=== PATIENT | male | born 1985 | race Caucasian/White ===

== ENCOUNTER 2017-04-26 13:41 | Emergency (ER) | payer BC ==
[2017-04-26 14:55] VITALS: BP 142/63
--- NOTE | 2017-04-26 15:13 | ED ---
Neck Pain - HPI Summary HPI Summary: 31 yr old male with the complaint of right sided neck pain. Onset of pain was a week ago, and located right side of posterior neck, radiates into right trapezius. Worse with turning the head to the right. Pain is 6/10. No numbness, weakness in hands or legs. no bowel or bladder incontinence. No other complaints. - History of Current Complaint Chief Complaint: UCBackPain Stated Complaint: BACK PAIN Time Seen by Provider: 04/26/17 14:56 - Allergies/Home Medications Allergies/Adverse Reactions: Allergies Allergy/AdvReac Type Severity Reaction Status Date / Time Amoxicillin Allergy Rash Verified 04/26/17 14:49 Home Medications: Home Medications Acetaminophen [Acetaminophen Extra Stren] 1,000 mg PO ONCE PRN 04/26/17 [ History Confirmed 04/26/17] Eluxadoline (NF) [Viberzi] 75 mg PO 04/26/17 [History] Modafinil TAB* [Provigil TAB*] 200 mg PO DAILY 04/26/17 [History Confirmed 04/26] Tolterodine (NF) [Detrol (NF)] 1 mg PO 04/26/17 [History] PMH/Surg Hx/FS Hx/Imm Hx Previously Healthy: Yes - Surgical History Surgery Procedure, Year, and Place: nasal Infectious Disease History: No Infectious Disease History: Denies: Traveled Outside the [place] in Last 30 Days - Family History Known Family History: Positive: None - Social History Occupation: Employed Full-time Lives: With Family Alcohol Use: None Substance Use Type: Reports: None Smoking Status (MU): Never Smoked Tobacco Review of Systems Constitutional: Negative Positive: Other - neck pain Negative: Weakness, Paresthesia, Numbness All Other Systems Reviewed And Are Negative: Yes Physical Exam Triage Information Reviewed: Yes Vital Signs On Initial Exam: Initial Vitals Temp Pulse Resp BP 98.2 F 83 18 142/63 04/26/17 14:51 04/26/17 14:51 04/26/17 14:51 04/26/17 14:51 Vital Signs Reviewed: Yes Appearance: Positive: Well-Appearing, No Pain Distress Skin: Positive: Warm Head/Face: Positive: Normal Head/Face Inspection Eyes: Positive: EOMI ENT: Positive: Normal ENT inspection, Pharynx normal, TMs normal Neck: Positive: Nontender Respiratory/Lung Sounds: Positive: Clear to Auscultation, Breath Sounds Present Cardiovascular: Positive: RRR. Negative: Murmur Abdomen Description: Positive: Nontender Musculoskeletal: Positive: Strength/ROM Intact, Other - he has increased muscle turgor right side of posterior neck and also in the right trapezius. With increased tenderness in these muscles. Limited ROM of neck looking to the right. No midline neck tenderness. Neurological: Positive: Sensory/Motor Intact, Alert, Oriented to Person Place, Time, CN Intact II-III Psychiatric: Positive: Normal - [place] Coma Scale Best Eye Response: 4 - Spontaneous Best Motor Response: 6 - Obeys Commands Best Verbal Response: 5 - Oriented Diagnostics - Vital Signs Vital Signs Temp Pulse Resp BP 04/26/17 14:51 98.2 F 83 18 142/63 - Laboratory Lab Statement: Any lab studies that have been ordered have been reviewed, and results considered in the medical decision making process. Neck Course/Dx - Course Course Of Treatment: 31 yr old male with complaint of neck pain. Plan rx with flexeril and motrin and DC to home in good condition to follow up with PMD. Go to ER if not getting better or worsening. Xrays not beneficial at this point. May need MR if not improving. - Diagnoses Provider Diagnoses: Torticollis, spasmodic Discharge - Discharge Plan Condition: Good Disposition: HOME Prescriptions: Cyclobenzaprine TAB* [Flexeril 10 MG TAB*] 10 mg PO BID PRN #14 tab PRN Reason: Spasms - Neck Ibuprofen TAB* [Motrin TAB* 600 MG] 600 mg PO Q6H PRN #20 tab PRN Reason: Pain Patient Education Materials: Spasmodic Torticollis (ED), Hypertension (ED) Referrals: Lew Ortiz DO [Primary Care Provider] - 2 Days
== END 2017-04-26 15:14 | disposition home or self-care (01) ==
LOC: UCCORT 13:41
DX: G24.3 Spasmodic torticollis (principal); Z88.0 Allergy status to penicillin
CPT/HCPCS: 99212; G0463

== ENCOUNTER 2018-02-28 11:05 | Emergency (ER) | payer BC ==
[2018-02-28 12:03] VITALS: BP 137/65
--- NOTE | 2018-02-28 12:26 | UC ---
Back Pain HPI - HPI Summary HPI Summary: Pt presents with c/o of upper back and neck pain. Pt has a hx of previous upper back and neck pain " a few years ago" and now reports that he "turned his head just right" and woke this morning with worsening neck and upper back pain. Pt is following with chiropractor and has appointment with him today. - History of Current Complaint Chief Complaint: UCBackPain Stated Complaint: BACK/NECK PAIN Time Seen by Provider: 02/28/18 12:07 Hx Obtained From: Patient Onset/Duration: Sudden Onset, Lasting Days, Still Present Timing: Constant Severity Initially: Mild Severity Currently: Mild Pain Intensity: 4 Character: Dull, Aching, Stiffness Aggravating Factor(s): Movement Alleviating Factor(s): Rest, Position Associated Signs And Symptoms: Positive: Negative - Risk Factors AAA Risk Factors: Negative TAD Risk Factors: Negative Cauda Equina Risk Factors: Negative Epidural Abscess Risk Factors: Negative - Allergies/Home Medications Allergies/Adverse Reactions: Allergies Allergy/AdvReac Type Severity Reaction Status Date / Time amoxicillin Allergy Rash Verified 02/28/18 11:58 Home Medications: Home Medications NK [No Home Medications Reported] 02/28/18 [History Confirmed 02/28/18] PMH/Surg Hx/FS Hx/Imm Hx Previously Healthy: Yes - Surgical History Surgical History: Yes Surgery Procedure, Year, and Place: nasal. hernia - Family History Known Family History: Positive: Cardiac Disease - Social History Occupation: Employed Full-time Lives: With Family Alcohol Use: Occasionally Substance Use Type: None Smoking Status (MU): Never Smoked Tobacco Have You Smoked in the Last Year: No - Immunization History Most Recent Tetanus Shot: utd Review of Systems Constitutional: Negative Skin: Negative Eyes: Negative ENT: Negative Respiratory: Negative Cardiovascular: Negative Gastrointestinal: Negative Genitourinary: Negative Motor: Negative Neurovascular: Negative Musculoskeletal: Myalgia Neurological: Negative Psychological: Negative Is Patient Immunocompromised?: No All Other Systems Reviewed And Are Negative: Yes Physical Exam Triage Information Reviewed: Yes Appearance: Well-Appearing Vital Signs: Initial Vital Signs Temp 97.8 F 02/28/18 12:00 Pulse 82 02/28/18 12:00 Resp 16 02/28/18 12:00 BP 137/65 02/28/18 12:00 Pulse Ox 100 02/28/18 12:00 Vital Signs Reviewed: Yes Eye Exam: Normal ENT Exam: Normal Dental Exam: Normal Neck exam: Normal Neck: Positive: Supple, Nontender Respiratory Exam: Normal Cardiovascular Exam: Normal Abdominal Exam: Normal Musculoskeletal Exam: Normal Neurological Exam: Normal Psychological Exam: Normal Skin Exam: Normal Back Pain Course/Dx - Differential Dx/Diagnosis Differential Diagnosis/HQI/PQRI: Strain, Sprain Provider Diagnoses: upper back and neck pain Discharge - Sign-Out/Discharge Documenting (check all that apply): Patient Departure All imaging exams completed and their final reports reviewed: No Studies - Discharge Plan Condition: Stable Disposition: HOME Patient Education Materials: Back Pain (ED), Core Strengthening Exercises (GEN) Referrals: Mary Carmen Small MD [Primary Care Provider] - If Needed - Billing Disposition and Condition Condition: STABLE Disposition: Home
== END 2018-02-28 12:34 | disposition home or self-care (01) ==
LOC: UCCORT 11:05
DX: M54.2 Cervicalgia (principal); M54.6 Pain in thoracic spine
CPT/HCPCS: 99211; G0463

== ENCOUNTER 2018-12-14 09:13 | Emergency (ER) | payer BC ==
[2018-12-14 09:39] VITALS: BP 137/58
--- NOTE | 2018-12-14 10:19 | UC ---
Back Pain HPI - HPI Summary HPI Summary: pt states he awoke with some pain in his R mind back around 2 am. he took 400mg of Ibuprofen which helped. he did not have any injury but was playing tug of war and did some lifting and moving of furniture the day before. he has been seeing a chiropractor for the past 6 months for some back pain and "poor posture". - History of Current Complaint Chief Complaint: UCBackPain Stated Complaint: BACK PAIN Time Seen by Provider: 12/14/18 10:08 Hx Obtained From: Patient Pain Intensity: 8 Aggravating Factor(s): Movement Alleviating Factor(s): Other - NSAID and rest(not moving) Associated Signs And Symptoms: Positive: Other - no saddle anesthesia. Negative : Fever, Weakness, Numbness, Tingling, Abdominal Pain, Flank Pain, Bladder Incontinence, Bowel Incontinence - Risk Factors AAA Risk Factors: Negative TAD Risk Factors: Negative Cauda Equina Risk Factors: Negative Epidural Abscess Risk Factors: Negative - Allergies/Home Medications Allergies/Adverse Reactions: Allergies Allergy/AdvReac Type Severity Reaction Status Date / Time amoxicillin Allergy Rash Verified 12/14/18 09:39 Home Medications: Home Medications Ibuprofen TAB* [Advil TAB*] 400 mg PO Q6H PRN 12/14/18 [History Confirmed ] PMH/Surg Hx/FS Hx/Imm Hx Previously Healthy: Yes - Surgical History Surgical History: Yes Surgery Procedure, Year, and Place: nasal. hernia - Family History Known Family History: Positive: None, Cardiac Disease - Social History Lives: With Family Alcohol Use: Weekly Substance Use Type: None Smoking Status (MU): Never Smoked Tobacco Have You Smoked in the Last Year: No - Immunization History Most Recent Tetanus Shot: utd Review of Systems All Other Systems Reviewed And Are Negative: Yes Constitutional: Negative: Fever, Chills Skin: Negative: Rash Gastrointestinal: Negative: Abdominal Pain, Vomiting, Diarrhea, Nausea Musculoskeletal: Negative: Decreased ROM Neurological: Negative: Weakness, Paresthesia, Numbness Physical Exam Triage Information Reviewed: Yes Appearance: Well-Appearing Vital Signs: Initial Vital Signs Temp 98.3 F 12/14/18 09:34 Pulse 79 12/14/18 09:34 Resp 18 12/14/18 09:34 BP 137/58 12/14/18 09:34 Pulse Ox 99 12/14/18 09:34 Vital Signs Reviewed: Yes Eyes: Positive: Conjunctiva Clear Neck: Positive: Supple, Nontender, No Lymphadenopathy Respiratory: Positive: Lungs clear, Normal breath sounds, No respiratory distress Cardiovascular: Positive: RRR, No Murmur, Pulses Normal - BUE's Abdomen Description: Positive: Nontender, No Organomegaly, Soft. Negative: Distended, Guarding, Pulsatile Mass Bowel Sounds: Positive: Present Musculoskeletal: Positive: Other: - cervical, thoracic and lumbar spine without curvature, deformity or tenderness. R paraspinal mm spasm observes in thoracic and upper lumbar region on flexion which reproduces and worsens his back pain. same area is also tender. ROM is intact throughtout. no saddle anesthesia. 5/5 strength, 2+ reflexes and sensation intact x4. steady gait. Neurological: Positive: Alert Psychological: Positive: Age Appropriate Behavior Skin Exam: Normal Skin: Negative: Rashes Back Pain Course/Dx - Differential Dx/Diagnosis Differential Diagnosis/HQI/PQRI: Other - no concern for infection, fx or acute abdomen. no concern for cauda equina. Provider Diagnosis: Back pain Discharge - Sign-Out/Discharge Documenting (check all that apply): Patient Departure All imaging exams completed and their final reports reviewed: No Studies - Discharge Plan Condition: Stable Disposition: HOME Prescriptions: Cyclobenzaprine TAB* [Flexeril 10 MG TAB*] 10 mg PO TID PRN #10 tab PRN Reason: Spasms - Back Naproxen [Naprosyn 500 mg tab] 500 mg PO BID 5 Days #10 tablet Patient Education Materials: Back Pain (ED) Referrals: Mary Carmen Small MD [Primary Care Provider] - 5 Days Additional Instructions: STOP THE IBUPROFEN. FOLLOW UP FOR A RECHECK IN 5 DAYS OR SOONER IF WORSE. - Billing Disposition and Condition Condition: STABLE Disposition: Home - Attestation Statements Provider Attestation: I was available for consult. This patient was seen by the JHONNY. The patient was not presented to, seen by, or examined by me. -Lynda
[2018-12-14] MEDS ORDERED: Ketorolac *IM* INJ* 60 MG/2 ML VIAL IM ONE (10:33)
== END 2018-12-14 10:55 | disposition home or self-care (01) ==
LOC: UCCORT 09:13
DX: M54.9 Dorsalgia, unspecified (principal)
CPT/HCPCS: 99212; G0463; J1885